=== PATIENT | male | born 1955 | race Caucasian/White ===

== ENCOUNTER → 2023-09-26 10:43 | Outpatient (REF) | payer BC, SELFPAY ==
[2023-09-26 12:21] LABS: ALT (SGPT) 21 U/L (0-50); AST (SGOT) 27 U/L (17-59); Alkaline Phosphatase 79 U/L (38-126); Blood Urea Nitrogen 12 mg/dl (9-20); Calcium 9.2 mg/dl (8.4-10.2); Carbon Dioxide 33 mmol/L (22-30); Chloride 100 mmol/L (98-107); Glucose 157 mg/dl (70-99); Potassium 4.3 mmol/L (3.5-5.1); Sodium 137 mmol/L (135-145); Total Bilirubin 0.6 mg/dl (0.2-1.3); Total Protein 6.7 g/dl (6.3-8.2); eGFR > 60.00
== END ==
LOC: HWLAB 10:43
PROVIDERS: ATTENDING PHYSICIAN Internal Medicine Hematology & Oncology; FAMILY PHYSICIAN Family Medicine
DX: C34.11 Malignant neoplasm of upper lobe, right bronchus or lung (principal); D45 Polycythemia vera
CPT/HCPCS: 36415; 80053

== ENCOUNTER → 2023-10-08 14:47 | Outpatient (REF) | payer BC, SELFPAY | LOC: MRI 3T 14:47 | PROVIDERS: ATTENDING PHYSICIAN Internal Medicine Hematology & Oncology; FAMILY PHYSICIAN Family Medicine | DX: C34.11 Malignant neoplasm of upper lobe, right bronchus or lung (principal); D45 Polycythemia vera; Z71.6 Tobacco abuse counseling; Z51.12 Encounter for antineoplastic immunotherapy; K59.03 Drug induced constipation | CPT/HCPCS: 70553; A9575 ==

== ENCOUNTER → 2024-03-08 09:56 | Outpatient (REF) | payer BC, SELFPAY ==
[2024-03-08 13:03] LABS: ALT (SGPT) 41 U/L (0-50); AST (SGOT) 44 U/L (17-59); Albumin 4.2 g/dl (3.5-5.0); Alkaline Phosphatase 115 U/L (38-126); Blood Urea Nitrogen 15 mg/dl (9-20); Calcium 10.1 mg/dl (8.4-10.2); Carbon Dioxide 31 mmol/L (22-30); Chloride 99 mmol/L (98-107); Glucose 113 mg/dl (70-99); Potassium 4.5 mmol/L (3.5-5.1); Sodium 137 mmol/L (135-145); Total Bilirubin 0.4 mg/dl (0.2-1.3); Total Protein 6.7 g/dl (6.3-8.2); eGFR > 60.00
[2024-03-08 14:12] LABS: Glycohemoglobin (HgbA1c) 5.8 % (4.0-5.6)
[2024-03-08 20:31] LABS: FSH 5.1 mIU/ml (1.55-9.74); Free T4 1.37 ng/dl (0.78-2.19); Luteinizing Hormone 6.69 mIU/ml (1.24-7.80); Prolactin 13.9 ng/ml (3.7-17.9)
[2024-03-08 20:45] LABS: TSH 0.93 uIU/ml (0.47-4.68)
[2024-03-08 21:33] LABS: Cortisol, Random 10.5 ug/dl
[2024-03-10 11:36] LABS: Thyroid Peroxidase Ab (TPO) 0.5 IU/mL (0.0-9.0)
[2024-03-10 11:48] LABS: Thyroglobulin 25.7 ng/mL (1.3-31.8); Thyroglobulin Antibodies <0.9 IU/mL (0.0-4.0)
[2024-03-10 21:36] LABS: % Free Testosterone 1.1 % (1.6-2.9); Free Testosterone 53 pg/mL (47-244); Sex Hormone Binding Globulin 75 nmol/L (19-76); Total Testosterone 487 ng/dL (300-720)
[2024-03-10 21:54] LABS: TSH Receptor Antibody <1.10 IU/L (<=1.75)
[2024-03-11 04:13] LABS: Thyroid Stim. Immunoglobulin <0.10 IU/L (<=0.54)
[2024-03-11 05:32] LABS: IGF-1 Z Score Calculation -0.2; Insulin-like Growth Factor I 102 ng/mL (31-243)
== END ==
LOC: HWLAB 09:56
PROVIDERS: ATTENDING PHYSICIAN Physician Assistant; FAMILY PHYSICIAN Family Medicine; REFERRING PHYSICIAN Internal Medicine Hematology & Oncology
DX: E05.90 Thyrotoxicosis, unspecified without thyrotoxic crisis or storm (principal)
CPT/HCPCS: 36415; 80053; 82024; 82533; 83001; 83002; 83036; 83520; 84146; 84270; 84305; 84402; 84403; 84432; 84439; 84443; 84445; 86376; 86800

== ENCOUNTER → 2024-03-09 11:25 | Outpatient (REF) | payer BC, SELFPAY | LOC: HWRAD 11:25 | PROVIDERS: ATTENDING PHYSICIAN Physician Assistant; FAMILY PHYSICIAN Family Medicine | DX: E05.90 Thyrotoxicosis, unspecified without thyrotoxic crisis or storm (principal) | CPT/HCPCS: 76536 ==

== ENCOUNTER → 2024-05-07 06:58 | Outpatient (REF) | payer BC, SELFPAY ==
[2024-05-07 09:35] LABS: % Basophils 1.1 % (0-2); % Eosinophils 1.1 % (0-6); % Immature Granulocytes 0.4 % (0-0.5); % Lymphocytes 13.5 % (20.5-51.1); % Neutrophils 72.9 % (42.2-75.2); Absolute Basophils 0.2 10^3/uL (0-0.2); Absolute Eosinophils 0.2 10^3/uL (0-0.7); Absolute Immature Granulocytes 0.1 10^3/uL (0-0.05); Absolute Monocytes 1.6 10^3/uL (0.1-0.6); Absolute Neutrophils 10.9 10^3/uL (1.4-6.5); Hematocrit 53.8 % (39.0-52.0); Hemoglobin 18.4 g/dL (13.0-18.0); Mean Corp Hgb Conc. 34.2 g/dL (33.0-37.0); Mean Corpuscular Volume 90.6 fL (80.0-94.0); Mean Platelet Volume 9.9 fL (7.4-10.4); Nucleated Red Blood Cells % 0 % (-); Platelet Count 275 10^3/uL (130-400); Red Blood Cell Count 5.94 10^6/uL (4.70-6.10); Red Cell Dist. Width 15.8 % (11.5-14.5); White Blood Cell Count 14.9 10^3/uL (4.8-10.8)
[2024-05-07 10:18] LABS: ALT (SGPT) 27 U/L (0-50); AST (SGOT) 42 U/L (17-59); Alkaline Phosphatase 113 U/L (38-126); Blood Urea Nitrogen 19 mg/dl (9-20); Calcium 9.8 mg/dl (8.4-10.2); Carbon Dioxide 28 mmol/L (22-30); Chloride 96 mmol/L (98-107); Glucose 126 mg/dl (70-99); Potassium 4.8 mmol/L (3.5-5.1); Sodium 137 mmol/L (135-145); Total Bilirubin 0.6 mg/dl (0.2-1.3); eGFR > 60.00
[2024-05-07 10:43] LABS: TSH Reflex To Free T4 1.19 uIU/ml (0.47-4.68)
== END ==
LOC: HWLAB 06:58
PROVIDERS: ATTENDING PHYSICIAN Internal Medicine Hematology & Oncology; FAMILY PHYSICIAN Family Medicine
DX: C34.11 Malignant neoplasm of upper lobe, right bronchus or lung (principal); D45 Polycythemia vera; Z71.6 Tobacco abuse counseling; Z51.12 Encounter for antineoplastic immunotherapy; K59.03 Drug induced constipation
CPT/HCPCS: 36415; 80053; 84443; 85025

== ENCOUNTER → 2024-05-27 08:15 | Outpatient (REF) | payer BC, SELFPAY | LOC: RST 08:15 | PROVIDERS: ATTENDING PHYSICIAN Internal Medicine Critical Care Medicine; FAMILY PHYSICIAN Family Medicine | DX: R13.10 Dysphagia, unspecified (principal); T17.320A Food in larynx causing asphyxiation, initial encounter | CPT/HCPCS: 74230; 92611 ==

== ENCOUNTER → 2024-06-18 10:25 | Outpatient (REF) | payer BC, SELFPAY ==
[2024-06-18 11:35] LABS: % Basophils 1.3 % (0-2); % Eosinophils 3.1 % (0-6); % Immature Granulocytes 0.4 % (0-0.5); % Lymphocytes 20.2 % (20.5-51.1); % Monocytes 12.4 % (1.7-9.3); % Neutrophils 62.6 % (42.2-75.2); Absolute Basophils 0.1 10^3/uL (0-0.2); Absolute Eosinophils 0.3 10^3/uL (0-0.7); Absolute Monocytes 1.2 10^3/uL (0.1-0.6); Absolute Neutrophils 6.2 10^3/uL (1.4-6.5); Hemoglobin 18.8 g/dL (13.0-18.0); Mean Corp Hgb Conc. 34.2 g/dL (33.0-37.0); Mean Corpuscular Volume 93.5 fL (80.0-94.0); Mean Platelet Volume 10.3 fL (7.4-10.4); Nucleated Red Blood Cells % 0 % (-); Platelet Count 220 10^3/uL (130-400); Red Blood Cell Count 5.88 10^6/uL (4.70-6.10); Red Cell Dist. Width 17.9 % (11.5-14.5)
[2024-06-18 12:24] LABS: TSH Reflex To Free T4 1.54 uIU/ml (0.47-4.68)
[2024-06-18 12:37] LABS: ALT (SGPT) 23 U/L (0-50); AST (SGOT) 27 U/L (17-59); Albumin 4.2 g/dl (3.5-5.0); Alkaline Phosphatase 99 U/L (38-126); Blood Urea Nitrogen 17 mg/dl (9-20); Calcium 9.6 mg/dl (8.4-10.2); Carbon Dioxide 28 mmol/L (22-30); Chloride 99 mmol/L (98-107); Glucose 69 mg/dl (70-99); Potassium 4.7 mmol/L (3.5-5.1); Sodium 140 mmol/L (135-145); Total Bilirubin 0.4 mg/dl (0.2-1.3); Total Protein 6.9 g/dl (6.3-8.2); eGFR > 60.00
== END ==
LOC: HWLAB 10:25
PROVIDERS: ATTENDING PHYSICIAN Internal Medicine Hematology & Oncology; FAMILY PHYSICIAN Family Medicine
DX: C34.11 Malignant neoplasm of upper lobe, right bronchus or lung (principal); D45 Polycythemia vera; Z71.6 Tobacco abuse counseling; Z51.12 Encounter for antineoplastic immunotherapy; K59.03 Drug induced constipation
CPT/HCPCS: 36415; 80053; 84443; 85025

== ENCOUNTER → 2024-07-30 10:10 | Outpatient (REF) | payer BC, SELFPAY ==
[2024-07-30 13:17] LABS: % Eosinophils 1.7 % (0-6); % Immature Granulocytes 0.4 % (0-0.5); % Lymphocytes 16.3 % (20.5-51.1); % Monocytes 13.1 % (1.7-9.3); % Neutrophils 67.5 % (42.2-75.2); Absolute Basophils 0.1 10^3/uL (0-0.2); Absolute Eosinophils 0.2 10^3/uL (0-0.7); Absolute Lymphocytes 1.6 10^3/uL (1.2-3.4); Absolute Monocytes 1.3 10^3/uL (0.1-0.6); Absolute Neutrophils 6.5 10^3/uL (1.4-6.5); Hematocrit 55.2 % (39.0-52.0); Hemoglobin 17.9 g/dL (13.0-18.0); Mean Corp Hgb Conc. 32.4 g/dL (33.0-37.0); Mean Corpuscular Hgb 31.3 pg (27.0-31.0); Mean Corpuscular Volume 96.5 fL (80.0-94.0); Mean Platelet Volume 10.6 fL (7.4-10.4); Nucleated Red Blood Cells % 0 % (-); Platelet Count 221 10^3/uL (130-400); Red Blood Cell Count 5.72 10^6/uL (4.70-6.10); Red Cell Dist. Width 19.1 % (11.5-14.5); White Blood Cell Count 9.6 10^3/uL (4.8-10.8)
[2024-07-30 15:48] LABS: ALT (SGPT) 26 U/L (0-50); AST (SGOT) 29 U/L (17-59); Albumin 4.2 g/dl (3.5-5.0); Alkaline Phosphatase 79 U/L (38-126); Blood Urea Nitrogen 19 mg/dl (9-20); Calcium 9.6 mg/dl (8.4-10.2); Carbon Dioxide 32 mmol/L (22-30); Chloride 99 mmol/L (98-107); Glucose 89 mg/dl (70-99); Sodium 142 mmol/L (135-145); Total Bilirubin 0.4 mg/dl (0.2-1.3); Total Protein 6.7 g/dl (6.3-8.2); eGFR > 60.00
[2024-07-30 15:56] LABS: TSH Reflex To Free T4 0.82 uIU/ml (0.47-4.68)
== END ==
LOC: HWLAB 10:10
PROVIDERS: ATTENDING PHYSICIAN Internal Medicine Hematology & Oncology; FAMILY PHYSICIAN Family Medicine
DX: C34.11 Malignant neoplasm of upper lobe, right bronchus or lung (principal); D45 Polycythemia vera; Z71.6 Tobacco abuse counseling; Z51.12 Encounter for antineoplastic immunotherapy; K59.03 Drug induced constipation
CPT/HCPCS: 36415; 80053; 84443; 85025

== ENCOUNTER → 2024-09-07 06:34 | Outpatient (REF) | payer BC, SELFPAY ==
[2024-09-07 09:43] LABS: % Basophils 1.2 % (0-2); % Eosinophils 2.7 % (0-6); % Immature Granulocytes 0.4 % (0-0.5); % Lymphocytes 16.1 % (20.5-51.1); % Monocytes 12.4 % (1.7-9.3); % Neutrophils 67.2 % (42.2-75.2); Absolute Basophils 0.1 10^3/uL (0-0.2); Absolute Eosinophils 0.3 10^3/uL (0-0.7); Absolute Lymphocytes 1.7 10^3/uL (1.2-3.4); Absolute Monocytes 1.3 10^3/uL (0.1-0.6); Absolute Neutrophils 6.9 10^3/uL (1.4-6.5); Hematocrit 59.6 % (39.0-52.0); Hemoglobin 19.6 g/dL (13.0-18.0); Mean Corp Hgb Conc. 32.9 g/dL (33.0-37.0); Mean Corpuscular Hgb 31.9 pg (27.0-31.0); Mean Corpuscular Volume 96.9 fL (80.0-94.0); Mean Platelet Volume 9.9 fL (7.4-10.4); Nucleated Red Blood Cells % 0 % (-); Platelet Count 208 10^3/uL (130-400); Red Blood Cell Count 6.15 10^6/uL (4.70-6.10); Red Cell Dist. Width 18.7 % (11.5-14.5); White Blood Cell Count 10.2 10^3/uL (4.8-10.8)
[2024-09-07 10:18] LABS: Glycohemoglobin (HgbA1c) 5.6 % (4.0-5.6)
[2024-09-07 10:20] LABS: ALT (SGPT) 29 U/L (0-50); AST (SGOT) 32 U/L (17-59); Alkaline Phosphatase 84 U/L (38-126); Blood Urea Nitrogen 14 mg/dl (9-20); Calcium 8.8 mg/dl (8.4-10.2); Carbon Dioxide 32 mmol/L (22-30); Chloride 99 mmol/L (98-107); Glucose 93 mg/dl (70-99); Sodium 140 mmol/L (135-145); Total Bilirubin 0.4 mg/dl (0.2-1.3); Total Protein 6.6 g/dl (6.3-8.2); eGFR > 60.00
[2024-09-07 10:23] LABS: FSH 5.2 mIU/ml (1.55-9.74); Free T4 1.25 ng/dl (0.78-2.19); Luteinizing Hormone 4.73 mIU/ml (1.24-7.80); Prolactin 9.2 ng/ml (3.7-17.9)
[2024-09-07 10:37] LABS: TSH 1.02 uIU/ml (0.47-4.68)
[2024-09-07 10:39] LABS: Cortisol, Random 14.6 ug/dl
[2024-09-08 23:10] LABS: % Free Testosterone 0.9 % (1.6-2.9); Free Testosterone 69 pg/mL (47-244); Sex Hormone Binding Globulin 99 nmol/L (19-76); Total Testosterone 740 ng/dL (300-720)
[2024-09-09 02:35] LABS: Adrenocorticotropic Hormone 24.6 pg/mL (7.2-63.3)
[2024-09-10 14:55] LABS: IGF-1 Z Score Calculation -0.8; Insulin-like Growth Factor I 77 ng/mL (29-245)
== END ==
LOC: HWLAB 06:34
PROVIDERS: ATTENDING PHYSICIAN Physician Assistant; FAMILY PHYSICIAN Family Medicine
DX: E05.90 Thyrotoxicosis, unspecified without thyrotoxic crisis or storm (principal); R73.03 Prediabetes
CPT/HCPCS: 36415; 80053; 82024; 82533; 83001; 83002; 83036; 84146; 84270; 84305; 84402; 84403; 84439; 84443; 85025